=== PATIENT | female | born 1955 | race Caucasian/White ===

== ENCOUNTER → 2019-05-28 | Outpatient (CLI) | payer MEDICARE ==
[~2019-05-28] MED LIST: CALCAVITD PO; Calan Sr120 MG PO; FURO20 PO; LORPSEER12 PO; METF500 PO; NAPR220 PO; POTCHL10ER PO; VITAMIN D32000 UNI1 PO
== END | disposition home or self-care (01) ==
LOC: LAB EV 14:55 → LAB SHORT 14:55
DX: N12 Tubulo-interstitial nephritis, not specified as acute or chronic (principal); B58.8 Toxoplasmosis with other organ involvement
CPT/HCPCS: 87086